=== PATIENT | male | born 1965 | race Caucasian/White ===

== ENCOUNTER → 2017-03-04 | Outpatient (CLI) | payer MEDICAID ==
[2015-01-16 14:34] VITALS: BP 180/97
--- NOTE | 2017-03-04 12:15 | MRI ---
HISTORY: Low back pain and radiculopathy. Noncontrast MRI examination of the lumbar spine. Technique: Multiplanar multi-sequence MRI of the lumbar spine was obtained. Sagittal T1, sagittal T2 , and stir weighted images, axial T1, and axial T2 images were obtained. Findings: The lumbar spine demonstrates normal alignment with the expected signal characteristics of the bone marrow. There is no evidence for an acute fracture or compression deformity. No aggressive bone marrow lesion is seen. There is no evidence for discitis. No intrathecal mass lesion or intrathe jean hemorrhage is seen. Of note, L5 was labeled based on the location of the iliolumbar ligaments the purposes of this examination. The conus of the cord terminates normally. The visible retroperitoneum is unremarkable. There are at least 4-5 T2 intense sub cm bone marrow lesions throughout the L-spine which have the appearance of hemangiomas with associated T1 shortening seen involving most of these lesions. T12 -- L1: Posterior disc bulge without foraminal spinal canal stenosis seen. L1 -- L2: No appreciable disc pathology or neuroforaminal/spinal canal stenosis. L2 -- L3: No appreciable disc pathology or neuroforaminal/spinal canal stenosis. L3 -- L4: Broad-based posterior disc protrusion which combines facet joint DJD to create mild spinal canal narrowing and moderate, left greater than right, foraminal narrowing. L4 -- L5: Broad-based posterior disc protrusion which combines with facet joint DJD to create mild to moderate spinal canal narrowing and moderate to severe left-sided foraminal and lateral recess narro wing with moderate right-sided foraminal and lateral recess narrowing also seen. L5 -- S1: No significant disc pathology observed but there is an unusual bony protuberance/hypertroph y of the left lateral vertebral body on image number 37 through 40 of series 701 which appears to con tact the left sided L5 nerve root. This can best be followed up with CT imaging to evaluate the degre e of bony hypertrophy of the left L5 vertebral body. IMPRESSION: Unusual bony protuberance/hypertrophy of the left lateral L5 vertebral body on image numb er 37 through 40 of series 701 which appears to contact the left sided L5 nerve root. This can best b e followed up with L-spine CT imaging to evaluate the degree of bony hypertrophy of the left L5 verte bral body. Degenerative disc disease and facet joint DJD at L4-5 creates moderate spinal canal narrowing and rel atively severe left-sided foraminal narrowing, as above. Multiple (4-5) T2 intense sub cm bone marrow lesions throughout the L-spine which have the appearance of hemangiomas with associated T1 shortening seen involving most of these lesions. Reported By:
== END | disposition home or self-care (01) ==
LOC: RAD 08:27
PROVIDERS: ATTEND Specialist
DX: M53.88 Other specified dorsopathies, sacral and sacrococcygeal region (principal); M47.896 Other spondylosis, lumbar region; M51.36 Other intervertebral disc degeneration, lumbar region
CPT/HCPCS: 72148

== ENCOUNTER → 2017-04-07 | Day surgery (SDC) | payer MEDICAID ==
[~2017-04-07] MED LIST: KENALOG INJ 40 MG IM ONE; MARCAINE 0.25% INJ ONE; XYLOCAINE 2 % (PLAIN) ONE
--- NOTE | 2017-04-07 10:03 | DR.UPDATE ---
H&P Update History and Physical Update: History and Physical reviewed and patient examined. Changes noted: NO Yes with the following:Agree with Dr Scruggs's H&P. will perform LONDON L4-5 left.
[2017-04-07 10:43] VITALS: BP 142/57
== END | disposition home or self-care (01) | DRG 552 ==
LOC: SURG1 09:19
PROVIDERS: ATTEND Specialist
PROC: 3E0R3BZ Introduction of Anesthetic Agent into Spinal Canal, Percutaneous Approach (ICD-10-PCS; 2017-04-07)
PROC: 3E0R33Z Introduction of Anti-inflammatory into Spinal Canal, Percutaneous Approach (ICD-10-PCS; principal; 2017-04-07 12:15)
DX: M54.32 Sciatica, left side (principal); M51.36 Other intervertebral disc degeneration, lumbar region
CPT/HCPCS: 62323; 76000; S0020; J2001; J3301

== ENCOUNTER 2017-05-08 12:38 | Day surgery (SDC) | payer MEDICAID ==
[2017-05-08] MEDS ORDERED: KENALOG INJ 40 MG IM ONE (13:09)
[2017-05-08] MEDS ORDERED: MARCAINE 0.25% INJ ONE (13:09)
--- NOTE | 2017-05-08 13:27 | DR.UPDATE ---
H&P Update History and Physical Update: History and Physical reviewed and patient examined. Changes noted: NO Yes with the following:agree with Dr Amaya H&P except pain is on left. As was last L[place]ON. will proceed with Left L4-5 MBB and facet joint injection
[2017-05-08] MEDS ORDERED: XYLOCAINE 1 % (PLAIN) ONE ×2 (13:38→13:47)
[2017-05-08 14:00] VITALS: BP 146/68
== END 2017-05-08 14:04 | disposition home or self-care (01) | DRG 552 ==
LOC: SURG1 12:38
PROVIDERS: ATTEND Specialist
PROC: 3E0U3BZ Introduction of Anesthetic Agent into Joints, Percutaneous Approach (ICD-10-PCS; 2017-05-08)
PROC: 3E0R3BZ Introduction of Anesthetic Agent into Spinal Canal, Percutaneous Approach (ICD-10-PCS; 2017-05-08)
PROC: 3E0R33Z Introduction of Anti-inflammatory into Spinal Canal, Percutaneous Approach (ICD-10-PCS; 2017-05-08)
PROC: 3E0U33Z Introduction of Anti-inflammatory into Joints, Percutaneous Approach (ICD-10-PCS; principal; 2017-05-08 15:00)
DX: M54.32 Sciatica, left side (principal)
CPT/HCPCS: 64493; 76000; S0020; J2001; J3301